=== PATIENT | male | born 1995 | race Caucasian/White ===

== ENCOUNTER 2017-03-01 13:21 | Emergency (ER) | payer OTHER ==
[~2017-03-01] VITALS: Ht 185.4 cm; Wt 105.0 kg
[2017-03-01 13:54] VITALS: BP 138/89
[2017-03-01 14:36] LABS: BASOPHILS % 0.4 % (0.0-2.0); EOSINOPHILS % 0.3 % (0.0-5.0); HEMATOCRIT. 45.2 % (42.0-52.0); HEMOGLOBIN. 15.8 g/dL (14.0-18.0); LYMPHOCYTES % 15.2 % (20.0-50.0); MEAN CORPUSCULAR HEMOGLOBIN 29.8 pg (28.0-32.0); MEAN CORPUSCULAR VOLUME 85.4 fL (80.0-94.0); MEAN PLATELET VOLUME 8.4 fl (7.4-10.4); MONOCYTES % 5.7 % (2.0-8.0); NEUTROPHILS % 78.4 % (40.0-76.0); PLATELET 235 x1000/uL (130-400); RED CELL DISTRIBUTION WIDTH 13.6 % (11.6-14.6)
[2017-03-01 14:39] LABS: CHLORIDE 105 mEq/L (98-107)
[2017-03-01 14:48] LABS: CARBON DIOXIDE 26 mEq/L (21-32)
== END 2017-03-01 15:18 | disposition home or self-care (01) ==
LOC: ER 14:09
DX: R07.9 Chest pain, unspecified (principal); R06.02 Shortness of breath; F12.90 Cannabis use, unspecified, uncomplicated
CPT/HCPCS: 36415; 71010; 80053; 85025; 93005; 99285; Z7610

== ENCOUNTER 2020-05-28 10:24 | Emergency (ER) | payer OTHER ==
[~2020-05-28] VITALS: Ht 188 cm; Wt 101.0 kg
[2020-05-28 10:33] VITALS: BP 132/83
[2020-05-28] MEDS ORDERED: AZIT250T12 PO (10:36)
== END 2020-05-28 11:20 | disposition home or self-care (01) ==
LOC: ER 10:28
DX: M79.18 Myalgia, other site (principal); Z85.6 Personal history of leukemia; F17.200 Nicotine dependence, unspecified, uncomplicated
CPT/HCPCS: 99281

== ENCOUNTER 2022-06-30 21:18 | Emergency (ER) | payer MEDICAID, OTHER ==
[~2022-06-30] VITALS: Ht 182.9 cm; Wt 123.0 kg
[~2022-06-30 21:18] MED LIST: AZIT250T12 PO
[2022-07-01] MEDS ORDERED: KETOROLAC 15MG/ML VIAL IV ONE (01:00)
[2022-07-01] MEDS ORDERED: DEXAMETHASONE 10 MG/ML VIAL IV ONE (01:00)
[2022-07-01] MEDS ORDERED: CEFTRIAXONE 2 G PREMIX 50 ML IV ONE (01:00)
[2022-07-01] MEDS ORDERED: SODIUM CHLORIDE 0.9% 1,000 ML IV ONE (01:00)
[2022-07-01] MEDS ORDERED: CLINDAMYCIN 600 MG in DEXTROSE 5% WATER 50 ML IV ONE (01:00)
[2022-07-01] MEDS ORDERED: CLINDAMYCIN 600MG PREMIX 50 ML IV NR (01:30)
[2022-07-01] MEDS ORDERED: CEFTRIAXONE 2 G PREMIX 50 ML IV NR (01:30)
[2022-07-01 03:30] VITALS: BP 140/90
[2022-07-01] MEDS ORDERED: AMOX1TAB16 MT (03:42)
[2022-07-01] MEDS ORDERED: IBUP-2029 MT (03:42)
== END 2022-07-01 04:00 | disposition home or self-care (01) ==
LOC: ER 21:18
DX: J36 Peritonsillar abscess (principal); F12.10 Cannabis abuse, uncomplicated; Z98.890 Other specified postprocedural states
CPT/HCPCS: 96365; 96375; 99284; J0696; J1100; J1885; J3490; J7030; J7060

== ENCOUNTER 2025-05-11 20:37 | Inpatient (IN) | payer OTHER, MEDICAID ==
[~2025-05-11] VITALS: Ht 182.9 cm; Wt 147.0 kg
[~2025-05-11 20:37] MED LIST changes: +AMOX1TAB16 MT; +IBUP-1455 MT
[2025-05-11] MEDS: MORPHINE SULFATE 4 MG/ML INJ (FOR IV/IM USE) IV ONE ×2 (21:30→22:20)
[2025-05-11] MEDS: ONDANSETRON HCL 4MG/2ML INJ IV ONE (22:19)
[2025-05-11] MEDS: SODIUM CHLORIDE 0.9% 1,000 ML IV ONE (22:19)
[2025-05-11 22:36] LABS: BASOPHILS % 0.5 % (0.0-2.0); EOSINOPHILS % 1.1 % (0.0-5.0); HEMATOCRIT. 43.7 % (42.0-52.0); HEMOGLOBIN. 14.3 g/dL (14.0-18.0); LYMPHOCYTES % 16.9 % (20.0-50.0); MEAN PLATELET VOLUME 8.0 fl (7.4-10.4); MONOCYTES % 6.2 % (2.0-8.0); NEUTROPHILS % 75.3 % (40.0-76.0); PLATELET 234 x1000/uL (130-400); RED BLOOD CELL COUNT 4.79 mill/uL (4.7-6.1); RED CELL DISTRIBUTION WIDTH 15.1 % (11.6-14.6)
[2025-05-11 22:49] LABS: CREATININE 1.0 mg/dL (0.6-1.3); UREA NITROGEN BLOOD 9 mg/dL (9-23)
[2025-05-11 22:50] LABS: INR 1.0
[2025-05-11 22:53] VITALS: O2SAT 96
[2025-05-11] MEDS: ETOMIDATE 2MG/ML 10ML VIAL IV ONE (23:00)
[2025-05-12 04:00] VITALS: BP 135/85; PULSE 84; RESP 19; TEMP 36.7516
[2025-05-12] MEDS ORDERED: ONDANSETRON HCL 4MG/2ML INJ IV PRN ×2 (07:30→11:00)
[2025-05-12] MEDS: MORPHINE SULFATE 2 MG/ML INJ (NOT FOR IM USE) IV PRN (07:48)
[2025-05-12 08:00] VITALS: BP 126/90; PULSE 104; RESP 19; TEMP 36.6; O2SAT 96
[2025-05-12] MEDS ORDERED: LIDOCAINE HCL 1% 20ML VIAL ONE (10:25)
[2025-05-12] MEDS ORDERED: FENTANYL CITRATE/PF 50MCG/ML 2ML VIAL ONE (10:26)
[2025-05-12] MEDS ORDERED: MIDAZOLAM HCL 2 MG/2 ML VIAL ONE (10:26)
[2025-05-12] MEDS ORDERED: PROPOFOL 200MG/20ML VIAL IV ONE ×2 (10:26→10:34)
[2025-05-12] MEDS ORDERED: HYDROMORPHONE HCL/PF 2MG/ML INJ ONE (10:52)
[2025-05-12] MEDS ORDERED: POLYMYXIN B SULFATE 500000 UNITS/VIAL ONE (10:54)
[2025-05-12] MEDS ORDERED: CLONIDINE 0.1MG TABLET PO PRN (11:00)
[2025-05-12] MEDS ORDERED: HYDROMORPHONE HCL/PF 1MG/ML INJ IV PRN (11:00)
[2025-05-12] MEDS ORDERED: ACETAMINOPHEN 325MG TABLET PO PRN ×2 (11:00)
[2025-05-12] MEDS ORDERED: LABETALOL 5MG/ML 4ML INJ IV PRN (11:00)
[2025-05-12] MEDS ORDERED: IPRATROPIUM/ALBUTEROL 0.5-3(2.5)MG/3ML NEB HHN PRN (11:00)
[2025-05-12] MEDS ORDERED: ACETAMINOPHEN 1,000MG/100ML PREMIX IV PRN (11:00)
[2025-05-12] MEDS ORDERED: ACETAMINOPHEN 1000MG/100ML 100 ML IV PRN (11:00)
[2025-05-12] MEDS ORDERED: DOCUSATE SODIUM 100MG CAPSULE PO PRN (11:00)
[2025-05-12] MEDS ORDERED: HYDRALAZINE 20MG/ML VIAL IV PRN ×2 (11:00)
[2025-05-12] MEDS ORDERED: MEPERIDINE HCL/PF 25MG/ML CPJ IV PRN (11:00)
[2025-05-12] MEDS ORDERED: FAMOTIDINE 20MG/2ML VIAL IV PRN (11:00)
[2025-05-12] MEDS ORDERED: NALOXONE HCL 0.4MG/ML VIAL IV PRN (11:15)
[2025-05-12] MEDS: CEFAZOLIN 1000MG PREMIX 50 ML IV SCH (11:30)
[2025-05-12 12:00] VITALS: BP 158/94; PULSE 93; RESP 18; TEMP 36.6; O2SAT 99
[2025-05-12] MEDS: HYDROCODONE/ACETAMINOPHEN 5/325MG TABLET PO PRN (13:00)
[2025-05-12 16:00] VITALS: BP 148/85; PULSE 77; RESP 19; TEMP 36.9; O2SAT 99
[2025-05-12 20:00] VITALS: BP 148/99; PULSE 91; RESP 18; TEMP 36.4; O2SAT 98
[2025-05-12] MEDS: ENOXAPARIN 40MG/0.4ML SYR SUBCUT SCH (21:30)
[2025-05-12 23:45] VITALS: BP 148/99; PULSE 91; RESP 18; TEMP 36.4; O2SAT 98
[2025-05-13] VITALS: BP 144/95; PULSE 70; RESP 18; TEMP 36.6; O2SAT 100
[2025-05-13 04:00] VITALS: BP 138/97; PULSE 87; RESP 18; TEMP 36.3; O2SAT 100
[2025-05-13] MEDS: CEFAZOLIN 1000MG PREMIX 50 ML IV SCH (06:00)
[2025-05-13 08:00] VITALS: BP 138/92; PULSE 83; RESP 22; TEMP 36.3; O2SAT 95
[2025-05-13 08:39] LABS: BASOPHILS % 0.7 % (0.0-2.0); EOSINOPHILS % 0.0 % (0.0-5.0); HEMATOCRIT. 44.7 % (42.0-52.0); HEMOGLOBIN. 14.8 g/dL (14.0-18.0); LYMPHOCYTES % 15.1 % (20.0-50.0); MEAN PLATELET VOLUME 8.4 fl (7.4-10.4); MONOCYTES % 7.2 % (2.0-8.0); NEUTROPHILS % 77.0 % (40.0-76.0); PLATELET 248 x1000/uL (130-400); RED BLOOD CELL COUNT 4.92 mill/uL (4.7-6.1); RED CELL DISTRIBUTION WIDTH 15.0 % (11.6-14.6)
[2025-05-13 08:54] LABS: CREATININE 0.9 mg/dL (0.6-1.3); UREA NITROGEN BLOOD 6 mg/dL (9-23)
[2025-05-13 12:00] VITALS: BP 143/95; PULSE 78; RESP 21; TEMP 36.2; O2SAT 97
[2025-05-13 16:00] VITALS: BP 148/96; PULSE 85; RESP 20; TEMP 36.2; O2SAT 96
[2025-05-13 20:00] VITALS: BP 135/94; PULSE 81; RESP 17; TEMP 36.6; O2SAT 98
[2025-05-14] VITALS: BP 121/66; PULSE 76; RESP 16; TEMP 36.7; O2SAT 99
[2025-05-14 04:00] VITALS: BP 127/92; PULSE 76; RESP 20; TEMP 36.7; O2SAT 100
[2025-05-14 08:00] VITALS: BP 144/101; PULSE 90; RESP 21; TEMP 36.4; O2SAT 99
[2025-05-14] MEDS ORDERED: KETO10TA2 MT (11:44)
[2025-05-14] MEDS ORDERED: ASPI-1497 MT (11:44)
[2025-05-14 12:00] VITALS: BP 139/97; PULSE 106; RESP 20; TEMP 36.6; O2SAT 99
[2025-05-14 16:00] VITALS: BP 149/102; PULSE 91; RESP 19; TEMP 36.6; O2SAT 99
== END 2025-05-14 19:10 | disposition home or self-care (01) | DRG 313 ==
LOC: ER 20:37 → 6EST 05-12 01:53 → EDBEDREQ 05-12 02:21 → EDBEDREQTM 05-12 02:21 → ENRESERV 05-12 02:58
PROVIDERS: ADMIT Internal Medicine; ATTEND Internal Medicine
PROC: 0QSH35Z Reposition Left Tibia with External Fixation Device, Percutaneous Approach (ICD-10-PCS; principal; 2025-05-12)
PROC: 0SSG34Z Reposition Left Ankle Joint with Internal Fixation Device, Percutaneous Approach (ICD-10-PCS; 2025-05-12)
DX: S82.852A Displaced trimalleolar fracture of left lower leg, initial encounter for closed fracture (principal); S93.05XA Dislocation of left ankle joint, initial encounter; F12.90 Cannabis use, unspecified, uncomplicated; F17.200 Nicotine dependence, unspecified, uncomplicated; S90.512A Abrasion, left ankle, initial encounter; S93.02XA Subluxation of left ankle joint, initial encounter; W01.0XXA Fall on same level from slipping, tripping and stumbling without subsequent striking against object, initial encounter; Y92.89 Other specified places as the place of occurrence of the external cause; Y99.8 Other external cause status; Y93.89 Activity, other specified
CPT/HCPCS: 36415; 73600; 73610; 76000; 80048; 85025; 86850; 86900; 97116; 97162; 97535; 99285; A4606; J0690; J1171; J1650; J2003; J2250; J2270; J2405; J2704; J3010; J3490; J7030; C1713

== ENCOUNTER 2025-06-16 11:12 | Emergency (ER) | payer MEDICAID ==
[~2025-06-16] VITALS: Ht 182.9 cm; Wt 109.0 kg
[~2025-06-16 11:12] MED LIST changes: -AMOX1TAB16 MT; +ASPI-1497 MT; -AZIT250T12 PO; +KETO10TA2 MT
[2025-06-16 11:21] VITALS: O2SAT 99
[2025-06-16 16:00] VITALS: BP 160/82; PULSE 88; RESP 16; TEMP 36.7; O2SAT 100
== END 2025-06-16 16:10 | disposition home or self-care (01) ==
LOC: ER 12:01
DX: S82.842A Displaced bimalleolar fracture of left lower leg, initial encounter for closed fracture (principal); M79.662 Pain in left lower leg; F10.90 Alcohol use, unspecified, uncomplicated; F12.90 Cannabis use, unspecified, uncomplicated; X58.XXXA Exposure to other specified factors, initial encounter; Y93.89 Activity, other specified; Y92.89 Other specified places as the place of occurrence of the external cause; Y99.8 Other external cause status; Y90.9 Presence of alcohol in blood, level not specified
CPT/HCPCS: 73630; 93971; 99284

== ENCOUNTER 2025-07-16 09:00 | Emergency (ER) | payer OTHER ==
[~2025-07-16] VITALS: Ht 182.9 cm; Wt 109.0 kg
[2025-07-16 09:08] VITALS: O2SAT 98
[2025-07-16 10:05] LABS: BASOPHILS % 0.9 % (0.0-2.0); EOSINOPHILS % 1.1 % (0.0-5.0); HEMATOCRIT. 44.2 % (42.0-52.0); HEMOGLOBIN. 14.7 g/dL (14.0-18.0); LYMPHOCYTES % 14.0 % (20.0-50.0); MEAN PLATELET VOLUME 8.3 fl (7.4-10.4); MONOCYTES % 6.2 % (2.0-8.0); NEUTROPHILS % 77.8 % (40.0-76.0); PLATELET 272 x1000/uL (130-400); RED BLOOD CELL COUNT 4.86 mill/uL (4.7-6.1); RED CELL DISTRIBUTION WIDTH 15.1 % (11.6-14.6)
[2025-07-16] MEDS: SODIUM CHLORIDE 0.9% 1,000 ML IV ONE (10:07)
[2025-07-16 10:14] LABS: INR 1.0
[2025-07-16 10:19] VITALS: TEMP 36.8
[2025-07-16 10:22] LABS: CREATININE 0.9 mg/dL (0.6-1.3); UREA NITROGEN BLOOD 7 mg/dL (9-23)
[2025-07-16] MEDS: ONDANSETRON HCL 4MG/2ML INJ IV ONE (10:23)
[2025-07-16] MEDS: PIPERACILLIN/TAZO 3.375G/50ML 50 ML IV ONE (10:23)
[2025-07-16] MEDS: MORPHINE SULFATE 4 MG/ML INJ (FOR IV/IM USE) IV ONE ×3 (10:23→19:38)
[2025-07-16 10:24] LABS: ASPARTATE AMINOTRANSFERASE 26 IU/L (<34); BILIRUBIN DIRECT 0.3 mg/dL (<=3.0); BILIRUBIN TOTAL 1.1 mg/dL (0.1-1.0)
[2025-07-16 10:25] LABS: PROTEIN TOTAL 8.6 g/dL (6.0-8.3)
[2025-07-16 10:55] VITALS: TEMP 98.3
[2025-07-16] MEDS: VANCOMYCIN 1G PREMIX 200 ML IV ONE (11:57)
[2025-07-16] MEDS: KETOROLAC 30MG/ML VIAL IV ONE (14:59)
[2025-07-16] MEDS: IOHEXOL-300 100 ML BOTTLE ONE (15:14)
[2025-07-16 18:49] VITALS: O2SAT 97
[2025-07-16 19:38] VITALS: BP 163/93; PULSE 92; RESP 10
== END 2025-07-16 19:56 | disposition short-term general hospital (02) ==
LOC: ER 09:00 → CANBEDREQ 13:05 → ER 19:56
DX: L03.116 Cellulitis of left lower limb (principal); L97.929 Non-pressure chronic ulcer of unspecified part of left lower leg with unspecified severity; M86.9 Osteomyelitis, unspecified; F10.90 Alcohol use, unspecified, uncomplicated; F12.90 Cannabis use, unspecified, uncomplicated; Z98.890 Other specified postprocedural states; Z79.899 Other long term (current) drug therapy; Y90.9 Presence of alcohol in blood, level not specified
CPT/HCPCS: 80076; 80048; 83605; 85025; 85610; 87040; 87070; 87205; 36415; 84145; 73701; 93005; 96367; 96365; 96366; 96375; 96376; 99291; Q9967; J1885; J2405; J2543; J3373; J2270; J7030; Z7610